=== PATIENT | female | born 1990 | race Caucasian/White ===

== ENCOUNTER 2023-06-11 08:20 | Emergency (ER) | payer OTHER, SELFPAY ==
[2023-06-11 08:24] VITALS: BP 126/84; PULSE 114; RESP 18; TEMP 36.9; O2SAT 97; BMI 21.0
--- NOTE | 2023-06-11 08:41 | ED_ITS ---
HPI - General Adult General Chief complaint: Upper Respiratory Infection Stated complaint: HEADACHE/FEVER Time Seen by Provider: 06/11/23 08:39 Source: patient Mode of arrival: walk-in Limitations: no limitations History of Present Illness HPI narrative: Patient is a 32-year-old female who is presenting to the Emergency Room today with flulike symptoms for the past 2-3 days. at bedside. Patient has right ear pain, sore throat, myalgia, arthralgia, mild sinus headache, patient does not feel well. 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 Patient did not go to work today. No sick contacts at patient is aware of. Mild nausea, no vomiting, no diarrhea, no other acute complaints. . All systems are negative except as noted/marked. All systems reviewed and otherwise negative. . Nurses note and vital signs reviewed and patient is not hypoxic. General: The patient appears Sick but not toxic. Patient is resting comfortably on cart. Patient is not toxic, lethargic, or listless Skin: Warm, dry, no pallor noted. There is no rash noted. No petechiae, purpura. Head: Normocephalic, atraumatic Eye: Normal conjunctiva, no drainage, EOMI. PERRL Ears, Nose, Mouth, and Throat: oral mucosa is moist. Nares patent. Mouth without vesicles. Bilateral tympanic membrane shows no erythema, perforation or bulging. Patient has minimal air-fluid levels noted behind the right tympanic membrane. Clear drainage noted to the posterior pharynx. Cardiovascular: Regular Rate and Rhythm, no murmur, gallop, rub Respiratory: Patient is in no distress, no accessory muscle use, lungs are clear to auscultation, no wheezing, rales or rhonchi Back: non-tender, no CVA tenderness bilaterally to percussion. No CT LS midline pain GI: soft, no tenderness to palpation, Musculoskeletal: Patient has full range of motion of all of the extremities, no motor, sensory, or focal neurological deficits Neurological: A&O x3, normal speech Psychiatric: Cooperative Related Data Home Medications Medication Instructions Recorded Confirmed No Known Home Medications 06/11/23 06/11/23 Previous Rx's Medication Instructions Recorded ondansetron 4 mg disintegrating 4 mg PO Q4H PRN nausea and 06/11/23 tablet vomiting 3 days #6 tabs Allergies Allergy/AdvReac Type Severity Reaction Status Date / Time No Known Drug Allergies Allergy Verified 06/11/23 08:24 [facility] Social History Smoking status: Never smoker Exam Constitutional Vital Signs, click to edit/add: Last Vital Signs Temp 98.4 F 06/11/23 08:24 Pulse 114 H 06/11/23 08:24 Resp 18 06/11/23 08:24 BP 126/84 06/11/23 08:24 Pulse Ox 97 06/11/23 08:24 Course Vital Signs Vital signs: Vital Signs Temperature 98.4 F 06/11/23 08:24 Pulse Rate 114 H 06/11/23 08:24 Respiratory Rate 18 06/11/23 08:24 Blood Pressure 126/84 06/11/23 08:24 Pulse Oximetry 97 06/11/23 08:24 Temperature 98.4 F 06/11/23 08:24 Pulse Rate 114 H 06/11/23 08:24 Respiratory Rate 18 06/11/23 08:24 Blood Pressure 126/84 06/11/23 08:24 Pulse Oximetry 97 06/11/23 08:24 Medical Decision Making MDM Narrative Medical decision making narrative: Patient had a strep, influenza, they were negative. Patient had a popsicle. Patient was educated on using [id number] symptomatically treatment. Patient will use DayQuil, NyQuil, Flonase. Patient states that she has not swallow pills, patient will use the look of medication that she is able to [id number]. Work note given. Patient was sent home with prescription for Zofran use as needed to help with nausea or vomiting starts. No questions at discharge. Lab Data Labs: Lab Results 06/11/23 Range/Units 08:40 Influenza Type A Ag Negative Influenza Type B Ag Negative SARS-CoV-2 Ag (CV2AG) Negative (NEGATIVE) Streptococcus Screen Negative Discharge Plan Discharge Chief Complaint: Upper Respiratory Infection Clinical Impression: Upper respiratory infection, Sinus congestion, Flu-like symptoms, Sore throat Patient Disposition: Home, Self-Care Time of Disposition Decision: 10:00 Condition: Fair Prescriptions / Home Meds: New ondansetron 4 mg tablet,disintegrating 4 mg PO Q4H PRN (Reason: nausea and vomiting) 3 Days Qty: 6 0RF No Action No Known Home Medications Instructions: Pharyngitis (ED), Upper Respiratory Infection (ED), Viral Syndrome (ED), Cold Symptoms (ED) Additional Instructions: Start using DayQuil, NyQuil, Flonase daily for next 5-7 days Add Mucinex DM if needed Take daily vitamin C, vitamin D3, and zinc Increase fluids Alternate Tylenol and Motrin every 4 hours as needed for body aches, muscle pain, joint pain or chest wall pain Follow-up with her PCP is no significant improvement in the next 3-4 days Stand Alone Forms: Work/School Release, Portal Instructions Referrals: Mina Morataya DO [Primary Care Provider] - 1 week
[2023-06-11 08:55] LABS: Internal Control Within Normal Limits; Strep A Antigen Screen Negative
[2023-06-11 09:01] LABS: Influenza Virus A Antigen Negative; Influenza Virus B Antigen Negative; Internal Control Within Normal Limits; SARS-CoV-2 Ag NEGATIVE (NEGATIVE)
== END 2023-06-11 10:22 | disposition home or self-care (01) ==
PROVIDERS: Emergency Provider Emergency Medicine; PCP Internal Medicine
DX: J02.9 Acute pharyngitis, unspecified (principal); J06.9 Acute upper respiratory infection, unspecified; R09.81 Nasal congestion; M79.10 Myalgia, unspecified site; M25.50 Pain in unspecified joint; H92.01 Otalgia, right ear; Z20.822 Contact with and (suspected) exposure to COVID-19
CPT/HCPCS: 87070; 87804; 87811; 87880; 99283

== ENCOUNTER 2024-07-18 18:56 | Emergency (ER) | payer OTHER, SELFPAY ==
[2024-07-18 19:01] VITALS: BP 97/62; PULSE 64; TEMP 37.1; O2SAT 98; BMI 20.4
--- OUTSIDE RECORDS SUMMARY | 2024-07-18 19:03 | XMS_ITS | CCD ---
Author Organization [facility] Care Team Providers Care Credit Authorizer Name Role Phone Manuela Ross Unavailable MD Loraine Patel Primary Care Provider MD Neftali Marquez Attending Provider KEKE, DR BARCENAS Admitting Unavailable KEKE, DR BARCENAS Attending Unavailable JULIO CÉSAR, DR RYAN Primary Care Unavailable KEKE, DR BARCENAS Consulting Unavailable AMANDA, DR LORAINE Rocha Admitting Unavailable AMANDA, DR LORAINE Rocha Attending Unavailable [facility], DR CASTRO Primary Care Unavailable AMANDA, DR LORAINE Rocha Consulting Unavailable MD Loraine Patel Primary Care Provider DO Mini Renner Attending Provider Loraine Patel Primary Care Unavailable Mini Renenr Attending Unavailable Mini Renner Admitting Unavailable Loraine Patel Primary Care Unavailable Mini Renner Attending Unavailable Mini Renner Admitting Unavailable Neftali Marquez Attending Unavailable Neftali Marquez Admitting Unavailable Loraine Patel Primary Care Unavailable Loraine Patel Primary Care Unavailable Neftali Marquez Attending Unavailable Neftali Marquez Admitting Unavailable MINI RENNER Attending Unavailable Loraine Patel MD Primary Care Provider Medications Current Medications Medication Drug Class(es) Dates Sig (Normalized) Sig (Original) amoxicillin 80 mg/ml oral suspension (1 source) Penicillin-class Antibacterial Start: 12-09-2021 take 10 mL by mouth every twelve hours Amoxicillin 400 MG/5ML 10 ml Orally every 12 hrs for 10 days Nov, Active Completed/Discontinued Medications Medication Drug Class(es) Dates Sig (Normalized) Sig (Original) cephalexin 500 mg oral capsule (4 sources) Cephalosporin Antibacterial Start: 05-06-2019 End: 07-10-2019 take 500 mg by mouth every six hours Cephalexin Discontinued 500 MG PO Q6H 40 10 May 06, 2019 1:00am July 10, 2019 6:06pm docusate sodium 100 mg oral capsule (4 sources) Start: 07-13-2019 End: 01-01-2022 take 1 capsule by mouth once daily at bedtime Docusate Sodium (Dok) 100 mg Capsule Discontinued 100 MG PO Daily at bedtime July 13, 2019 1:00am January 01, 2022 10:13am ferrous sulfate 325 mg oral tablet (4 sources) Start: 05-06-2019 End: 01-01-2022 take 1 tablet by mouth once daily Ferrous Sulfate (Iron) 325 mg (65 mg iron) Tablet Discontinued 325 MG PO Daily May 06, 2019 1:00am January 01, 2022 10:13am ibuprofen 20 mg/ml oral suspension (4 sources) Nonsteroidal Anti-inflammatory Drug Start: 07-13-2019 End: 01-01-2022 take 600 mg by mouth every six hours Ibuprofen Discontinued 600 MG PO Q6H 120 July 13, 2019 1:00am January 01, 2022 10:13am [id number] Fumarate-Fa () 28-800 mg-mcg Tablet (4 sources) Start: 05-06-2019 End: 01-01-2022 take 1 capsule by mouth once daily [id number] Fumarate-Fa () 28-800 mg-mcg Tablet Discontinued 1 CAP PO Daily May 06, 2019 1:00am January 01, 2022 10:13am (1 source) Not-Taking Problems Active Problems Problem Classification Problem Date Documented Date Episodic/Chronic Fever of unknown origin (1 source) Fever, unspecified; Translations: [FEVER UNSPECIFIED] Onset: 04-23-2022 Episodic Menstrual disorders (3 sources) Excessive and frequent menstruation with regular cycle; Translations: [Dysmenorrhea] Onset: 10-20-2022 10-20-2022 Chronic Other and delivery including normal (4 sources) Delivery normal; Translations: [Encounter for full-term uncomplicated delivery] 07-14-2019 Episodic Other upper respiratory infections (1 source) Chronic frontal sinusitis; Translations: [Chronic frontal sinusitis] Chronic Other upper respiratory infections (4 sources) Acute pharyngitis, unspecified; Translations: [Acute upper respiratory infection, unspecified] Onset: 04-21-2022 Episodic Unclassified (1 source) CONTACT W/AND (SUSP) EXPOS COVID-19; Translations: [CONTACT W/AND (SUSP) EXPOS COVID-19] Onset: 04-23-2022 Unclassified (1 source) Encounter for other preprocedural examination; Translations: [Encounter for other preprocedural examination] Onset: 12-02-2022 Unclassified (1 source) Encounter for preprocedural laboratory examination; Translations: [Encounter for preprocedural laboratory examination] Onset: 12-30-2021 Past or Other Problems Problem Classification Problem Date Documented Da te Episodic/Chronic Gastrointestinal hemorrhage (4 sources) Gastrointestinal hemorrhage, unspecified; Translations: [GASTROINTESTINAL HEMORRHAGE UNS] Onset: 2 Episodic Inflammatory diseases of female pelvic organs (1 source) Subacute vaginitis; Translations: [Subacute and chronic vaginitis] Onset: 3 10-20-2022 Episodic Other lower respiratory disease (1 source) Hemoptysis; Translations: [Hemoptysis] Onset: 2 Episodic Otitis media and related conditions (1 source) Otitis media, unspecified, left ear Onset: 2 Resolved: 2 Episodic Results Test Name Value Interpretation Reference Range Facil kylee Castellon 12-16-2022 L --- Specimen: [id number] Received: 12/16/22-1254 Status: SRIKANTH Louis Num: [id number] Spec Type: Surgical Subm Dr: Mini Renner, Tissues: A Uterus w/ or w/o tubes ovaries except neoplastic or prolap (CERVIX/LUIS ANGEL FT) Procedures: , Gross/Micro L5 Age/ Patient Sex Location Account Attending Physician Sarah Connelly 32/F ANATOLY [id number] Mini Renner, DO SPEC NUM: [id number] RECD: 12/16/22-1254 STATUS: SRIKANTH MISSAEL NUM: [id number] KACY: 12/16/22- [facility] DR: Mini Renner DO ENTERED: 12/16/22-1256 [facility] DR: [facility] SPEC TYPE: Surgical DEPT: S ORDERED: HE/, Gross/Micro L5 ORDERED: , Gross/Micro L5 Pathological Diagnosis Cervix, uterus, bilateral fallopian tubes, hysterectomy with bilateral salpingectomy: - Cervix with apparently severe chronic cervicitis without dysplasia - Corpus with mildly disordered proliferative endometrium of the mid phase type without hyperplasia or atypia - Incidental at least mild superficial adenomyosis - Incidental multiple and large congested vessels throughout the thickened guzman of the cervix and corpus portion, per manifest of severe pelvic congestion syndrome - Fimbriated right fallopian tube without significant histopathological change except moderate nonspecific congestion - Fimbriated left fallopian tube also without significant histopathological change except nonspecific congestion, and 1 mesothelial inclusion cyst without atypia Clinical Information Menorrhagia, dysmenorrhea, enlarged uterus, adenomyosis, pelvic congestion syndrome, 198 g Gross Description Received in formalin labeled with the patient's name, date of and cervix, uterus, bilateral fallopian tubes, 198 g is a 188 g, 9.7 x 6.8 x 5.5 cm uterus with attached bilateral fallopian tubes. No ovaries are received. The uterine serosa is langford-burns. The exocervix is purple-pink with a central 1.3 cm patent os from which langford-red mucus protrudes. The endocervix is langford-red, glistening. The langford-red endometrium averages 0.3 cm in thickness. The pink-langford, trabecular myometrium measures up to 2.2 cm in thickness. No myometrial lesions are identified. The right fimbriated fallopian tube measures 6.9 x 1.0 x Specimen: [id number] Received: 12/16/22 Status: SRIKANTH Louis Num: [id number] Spec Type: Surgical Subm Dr: Mini Renner, Tissues: A Uterus w/ or w/o tubes ovaries except neoplastic or prolap (CERVIX/LUIS ANGEL FT) Procedures: HE/, Gross/Micro L5 Patient: Sarah Connelly Suzanne [id number] (Continued) Specimen: [id number] Received: 12/16/22 (Continued) Gross Description (Continued) Signed (signature on file) Francisca Rae MD 12/17/22 193 Specimen: [id number] Received: 12/16/22 Status: SIRKANTH Louis Num: [id number] Spec Type: Surgical Subm Dr: Mini Renner DO Tissues: A Uterus w/ or w/o tubes ovaries except neoplastic or prolap (CERVIX/LUIS ANGEL FT) Procedures: , Gross/Micro L5 Patient: MaricelSarah R [id number] (Continued) Specimen: [id number] Received: 12/16/22-1255 (Continued) Gross Description (Continued) 0.5 cm and has a pinpoint lumen on cut section. The left fimbriated fallopian tube measures 6.5 x 1.3 x 0.7 cm, and has a pinpoint lumen on cut section. The left fallopian tube has an attached 0.5 cm paratubal cyst. [employer] sections are submitted in 8 cassettes as follows: A1 - Anterior cervix A2 - Posterior cervix A3-A4 - Anterior endomyometrium A5-A6 - Posterior endomyometrium A7 - Right fallopian tube A8 - Left fallopian tube Microscopic Description Eight H E slides reviewed. The microscopic examination confirms the diagnosis. CPT Codes 82118 Specimen: [id number] Recei (more content not included)... Normal [facility] Basophils Auto (Bld) [#/Vol] Ordered By: Mini Renner on 12-02-2022 Basophils (Bld) [#/Vol] 0.1 10*3/uL 0.0-0.2 [facility] Basophils/100 WBC Auto (Bld) Ordered By: Mini Renner on 12-02-2022 Basophils/100 WBC (Bld) 1.1 % . [facility] Complete Blood Count Auto Di ffon 12-02-2022 Basophils (Bld) [#/Vol] 0.1 10*3/uL Normal 0.0-0.2 [facility] Comment on above: Result Comment: PERF ORMED BY: [place] [address] PATHOLOGIST CLOTHES DESIGNER EMIL BUCHANAN M.D. Performed By: #### C BC #### [address] Basophils/100 WBC (Bld) 1.1 % Normal . [facility] Comment on above: Performed By: #### C BC #### [address] Eosinophils (Bld) [#/Vol] 0.0 10*3/uL Normal 0.0-0.45 [facility] Comment on above: Performed By: #### C BC #### [address] Eosinophils/100 WBC (Bld) 0.4 % Normal . [facility] Comment on above: Performed By: #### C BC #### [address] Erythrocyte distribution width (RBC) [Ratio] 13.7 % Normal 11.9-15.3 [facility] Comment on above: Performed By: #### C BC #### [address] Hematocrit (Bld) [Volume fraction] 36.7 % Normal 34.0-46.4 [facility] Comment on above: Performed By: #### C BC #### [address] Hemoglobin (Bld) [Mass/Vol] 12.2 g/dL Normal 11.8-15.4 [facility] Comment on above: Performed By: #### C BC #### [address] Lymphocytes (Bld) [#/Vol] 2.4 10*3/uL Normal 1.00-4.8 [facility] Comment on above: Performed By: #### C BC #### [address] Lymphocytes/100 WBC (Bld) 28.2 % Normal . [facility] Comment on above: Performed By: #### C BC #### [facility] [address] MCH (RBC) [Entitic mass] 30.3 pg Normal 24.7-34.3 [facility] Comment on above: Performed By: #### C BC #### [facility] [address] MCV (RBC) [Entitic vol] 91.0 fL Normal 80-100 [facility] Comment on above: Performed By: #### C BC #### [address] Mean Corpuscular HGB Conc 33.3 g/dL Normal 32.0-35.0 [facility] Comment on above: Performed By: #### C BC #### [address] Monocytes (Bld) [#/Vol] 0.3 10*3/uL Normal 0.0-0.8 [facility] Comment on above: Performed By: #### C BC #### [address] Monocytes/100 WBC (Bld) 4.0 % Normal . [facility] Comment on above: Performed By: #### C BC #### [address] Neutrophils (Bld) [#/Vol] 5.6 10*3/uL Normal 1.8-7.7 [facility] Comment on above: Performed By: #### C BC #### [address] Neutrophils/100 WBC (Bld) 66.3 % Normal . [facility] Comment on above: Performed By: #### C BC #### [address] NRBC% 0.1 /100{WBC} Normal 0-0.5 [facility] Comment on above: Performed By: #### C BC #### [facility] [address] Platelet mean volume (Bld) [Entitic vol] 9.4 fL Normal 6.3-10.7 [facility] Comment on above: Performed By: #### C BC #### [facility] [address] Platelets (Bld) [#/Vol] 232 10*3/uL Normal 150-450 [facility] Comment on above: Performed By: #### C BC #### [facility] [address] RBC (Bld) [#/Vol] 4.04 10*6/uL Normal 3.60-5.00 [facility] Comment on above: Performed By: #### C BC #### [facility] [address] WBC (Bld) [#/Vol] 8.4 10*3/uL Normal 3.8-11.6 [facility] Comment on above: Performed By: #### C BC #### [facility] [address] Eosinophils Auto (Bld) [#/Vo l]Ordered By: Mini Renner on 12-02-2022 Eosinophils (Bld) [#/Vol] 0.0 10*3/uL 0.0-0.45 [facility] Eosinophils/100 WBC Auto (Bl d)Ordered By: Mini Renner on 12-02-2022 Eosinophils/100 WBC (Bld) 0.4 % . [facility] Erythrocyte distribution wid th Auto (RBC) [Ratio]Ordered By: Mini Renner on 12-02-2022 Erythrocyte distribution width (RBC) [Ratio] 13.7 % 11.9-15.3 [facility] Hematocrit Auto (Bld) [Volum e fraction]Ordered By: Mini Renner on 12-02-2022 Hematocrit (Bld) [Volume fraction] 36.7 % 34.0-46.4 [facility] Hemoglobin [Mass/volume] in BloodOrdered By: Mini Renner on 12-02-2022 Hemoglobin (Bld) [Mass/Vol] 12.2 g/dL 11.8-15.4 [facility] Leukocytes [#/volume] correc catalina for nucleated erythrocytes in Blood by Automated counOrdered By: Mini Renner on 12-02-2022 WBC corrected for nucl RBC Auto (Bld) [#/Vol] 8.4 10*3/uL 3.8-11.6 [facility] Lymphocytes Auto (Bld) [#/Vo l]Ordered By: Mini Renner on 12-02-2022 Lymphocytes (Bld) [#/Vol] 2.4 10*3/uL 1.00-4.8 [facility] Lymphocytes/100 WBC Auto (Bl d)Ordered By: Mini Renner on 12-02-2022 Lymphocytes/100 WBC (Bld) 28.2 % . [facility] MCH Auto (RBC) [Entitic mass ]Ordered By: Mini Renner on 12-02-2022 MCH (RBC) [Entitic mass] 30.3 pg 24.7-34.3 [facility] MCHC Auto (RBC) [Mass/Vol]Or dered By: Mini Renner on 12-02-2022 MCHC (RBC) [Mass/Vol] 33.3 g/dL 32.0-35.0 [facility] MCV Auto (RBC) [Entitic vol] Ordered By: Mini Renner on 12-02-2022 MCV (RBC) [Entitic vol] 91.0 fL 80-100 [facility] Monocytes Auto (Bld) [#/Vol] Ordered By: Mini Renner on 12-02-2022 Monocytes (Bld) [#/Vol] 0.3 10*3/uL 0.0-0.8 [facility] Monocytes/100 WBC Auto (Bld) Ordered By: Mini Renner on 12-02-2022 Monocytes/100 WBC (Bld) 4.0 % . [facility] Neutrophils Auto (Bld) [#/Vo l]Ordered By: Mini Renner on 12-02-2022 Neutrophils (Bld) [#/Vol] 5.6 10*3/uL 1.8-7.7 [facility] Neutrophils/100 WBC Auto (Bl d)Ordered By: Mini Renner on 12-02-2022 Neutrophils/100 WBC (Bld) 66.3 % . [facility] Nucleated erythrocytes [Pres ence] in Blood by Automated countOrdered By: Mini Renner on 12-02-2022 Nucleated RBC Auto Ql (Bld) 0.1 /100{WBC} 0-0.5 [facility] Platelet mean volume Auto (B ld) [Entitic vol]Ordered By: Mini Renner on 12-02-2022 Platelet mean volume (Bld) [Entitic vol] 9.4 fL 6.3-10.7 [facility] Platelets Auto (Bld) [#/Vol] Ordered By: Mini Renner on 12-02-2022 Platelets (Bld) [#/Vol] 232 10*3/uL 150-450 [facility] RBC Auto (Bld) [#/Vol]Ordere d By: Mini Renner on 12-02-2022 RBC (Bld) [#/Vol] 4.04 10*6/uL 3.60-5.00 [facility] WBC Auto (Bld) [#/Vol]Ordere d By: Mini Renner on 12-02-2022 WBC (Bld) [#/Vol] 8.4 10*3/uL 3.8-11.6 [facility] Covid-19 PCR (CVDTB)on 03-25 SARS-CoV-2 (COVID-19) RNA IVETH+probe Ql (Unsp spec) Not detected Normal NOT DETECTED [facility] Comment on above: Result Comment: When diagnostic testing is negative, the possibility of a false negative should be considered in the context of a patient's recent exposures and the presence of clinical signs and symptoms consistent with SARS-CoV-2. This test is not yet approved or cleared by the [place] FDA. When there are no FDA-approved or cleared tests available, and other criteria are met, FDA can make tests available under an emergency access mechanism called an Emergency Use Authorization (EUA). The EUA for this test is supported by the Technology Training Associate of Health and Human Service's declaration that circumstances exist to justify the emergency use of in vitro diagnostics for the detection and/or diagnosis of the virus that causes COVID-19. This EUA will remain in effect for the duration of the COVID-19 declaration justifying emergency of IVDs, unless it is terminated or revoked by the FDA (after which the test may no longer be used). Performed By: #### C VDTBH #### [facility] [address] [place] [address] Dr. Marjorie Rae GROUP A STREP CULTUREon 03-25 S. pyogenes Ag Ql (Unsp spec) Culture Observations: NEGATIVE FOR GROUP A STREPTOCOCCUS. Normal [facility] Comment on above: Performed By: #### G RASTCX #### [facility] [address] [place] [address] Dr. Marjorie Rae INFLUENZA A AND B AGon 04-21 [facility] SEE BELOW Normal [facility] Comment on above: Result Comment: Nega tive for Flu A protein angiten. Infection due to Flu A cannot be ruled out. Flu A angiten in the sample may be below the detection limit of the test. Performed By: #### I NFLUAB #### [facility] [address] [place] [address] Dr[facility] Normal [facility] Comment on above: Result Comment: Nega tive for Flu B protein antigen. Infection due to Flu B cannot be ruled out. Flu B antigen in the sample may be below the detection limit of the test. Performed By: #### I NFLUAB #### [facility] [address] [place] [address] Dr. Marjorie Rae INFLUENZA A AG Negative Normal NEGATIVE SEE COMMENT [facility] Comment on above: Performed By: #### I NFLUAB #### [facility] [address] [place] [address] Dr. Marjorie Rae INFLUENZA B AG Negative Normal NEGATIVE SEE COMMENT [facility] Comment on above: Performed By: #### I NFLUAB #### [facility] [address] [place] [address] Dr. Marjorie Rae INTERNAL CONTROLS Within Normal Limits Normal Wi thin Normal Limits [facility] Comment on above: Performed By: #### I NFLUAB #### [facility] [address] [address] [address] Marjorie Rae STREPT SCREENon 04-21-2022 STREP SCREEN A Negative Normal NEGATIVE [facility] Comment on above: Performed By: #### S SCRN #### [facility] [address] [address] [address] Marjorie Rae HCG ( test) IA.rapi d Ql (U)Ordered By: Neftali Marquez on 01-01-2022 HCG ( test) Ql (U) Negative [facility] HCG,Urineon 01-01-2022 Beta HCG ( test) Ql (U) Negative Normal [facility] Comment on above: Result Comment: PERF ORMED BY: [place] [address] PATHOLOGIST CLOTHES DESIGNER EMIL BUCHANAN M.D. Performed By: #### U HCG #### [address] COVID-19 [facility]MCon 12-30-2021 SARS-CoV-2 (COVID-19) RNA IVETH+probe Ql (Unsp spec) Negative Normal Negative [facility] Comment on above: Order Comment: Healt hcare Worker?: N Result Comment: Testing for SARS-CoV-2 by RT-PCR This test was developed and its performance characteristics determined by [employer] and validated at the [facility]. This test has not been FDA cleared or approved. This test has been authorized by FDA under an Emergency Use Authorization (EUA). This test has been validated in accordance with the FDA's Guidance Document (Policy for Diagnostics Testing in Laboratories Certified to Perform High Complexity Testing under CLIA prior to Emergency Use Authorization for Coronavirus Disease-2019 during the Public Health Emergency) issued on August 24, 2019. This test is only authorized for the duration of time the declaration that circumstances exist justifying the authorization of the emergency use of in vitro diagnostic tests for detection of SARS-CoV-2 virus and/or diagnosis of COVID-19 infection under section 564(b)(1) of the Act, 21 U.S.C. 360bbb-3(b)(1), unless the authorization is terminated or revoked sooner. PERFORMED BY: [facility] [address] [place] [address] PATHOLOGIST CLOTHES DESIGNER EMIL BUCHANAN M.D. Performed By: #### C OVID 19 [facility] #### [facility] [address] [id number] [facility] COVID-19 Positive/NegativeOr dered By: Neftali Marquez on 12-30-2021 SARS-CoV-2 (COVID-19) N gene IVETH+probe Ql (Resp) Negative Negative [facility] Comment on above: Testing for SARS-CoV -2 by RT-PCR This test was developed and its performance characteristics determined by [employer] and validated at the [facility]. This test has not been FDA cleared or approved. This test has been authorized by FDA under an Emergency Use Authorization (EUA). This test has been validated in accordance with the FDA's Guidance Document (Policy for Diagnostics Testing in Laboratories Certified to Perform High Complexity Testing under CLIA prior to Emergency Use Authorization for Coronavirus Disease-2019 during the Public Health Emergency) issued on August 24, 2019. This test is only authorized for the duration of time the declaration that circumstances exist justifying the authorization of the emergency use of in vitro diagnostic tests for detection of SARS-CoV-2 virus and/or diagnosis of COVID-19 infection under section 564(b)(1) of the Act, 21 U.S.C. 360bbb-3(b)(1), unless the authorization is terminated or revoked sooner. H PYLORI ANTIBODY IGGon 10-22 H. PYLORI IGG ABS 0.19 Index Value Normal 0.00-0.79 [facility] Comment on above: Result Comment: Nega tive <0.80 Equivocal 0.80 - 0.89 Positive >0.89 Performed By: #### H PYLLC #### [facility] [address] [address] [address] Marjorie Rae CBC AUTO DIFFon 11-06-2021 BASO # 0.1 103/ul Normal 0.0-0.1 [facility] Comment on above: Performed By: #### C BC #### [facility] [address] [address] [address] Marjorie Rae Basophils/100 WBC (Bld) 0.5 % Normal 0.2-2.0 [facility] Comment on above: Performed By: #### C BC #### [facility] [address] [address] [address] Marjorie Rae EO # 0.1 103/ul Normal 0.0-0.7 [facility] Comment on above: Performed By: #### C BC #### [facility] [address] [address] [address] Marjorie Rae Eosinophils/100 WBC (Bld) 0.5 % Critically low 0.9-7.0 [facility] Comment on above: Performed By: #### C BC #### [facility] [address] [place] [address] Dr. Marjorie Rae Erythrocyte distribution width (RBC) [Ratio] 12.8 % Normal 11.0-15.0 [facility] Comment on above: Performed By: #### C BC #### [facility] [address] [place] [address] Dr. Marjorie Rae Hematocrit (Bld) [Volume fraction] 34.1 % Critically low 36.0-48.0 [facility] Comment on above: Performed By: #### C BC #### [facility] [address] [place] [address] Dr. Marjorie Rae Hemoglobin (Bld) [Mass/Vol] 11.2 g/dL Critically low 12.0-16.0 [facility] Comment on above: Performed By: #### C BC #### [facility] [address] [place] [address] Dr. Marjorie Rae IG # 0.02 10e3/ul Normal 0.00-0.03 [facility] Comment on above: Performed By: #### C BC #### [facility] [address] [place] [address] Dr. Marjorie Rae IG % 0.2 % Normal 0.0-0.5 [facility] Comment on above: Performed By: #### C BC #### [facility] [address] [place] [address] Dr. Marjorie Rae LYMPH # 2.4 103/ul Normal 1.2-3.8 [facility] Comment on above: Performed By: #### C BC #### [facility] [address] [place] [address] Dr. Marjorie Rae Lymphocytes/100 WBC (Bld) 26.8 % Normal 20.5-60.0 [facility] Comment on above: Performed By: #### C BC #### [facility] [address] [place] [address] Dr. Marjorie Rae MANUAL DIFF REQ NO Normal [facility] Comment on above: Performed By: #### C BC #### [facility] [address] [place] [address] Dr. Marjorie Rae MCH (RBC) [Entitic mass] 31.4 pg Normal 26.7-34.0 [facility] Comment on above: Performed By: #### C BC #### [facility] [address] [place] [address] Dr. Marjorie Rae MCHC (RBC) [Mass/Vol] 32.8 g/dL Normal 29.9-35.2 [facility] Comment on above: Performed By: #### C BC #### [facility] [address] [place] [address] Dr. Marjorie Rae MCV (RBC) [Entitic vol] 95.5 fL Normal 81.0-99.0 [facility] Comment on above: Performed By: #### C BC #### [facility] [address] [place] [address] Dr. Marjorie Rae MONO # 0.5 103/ul Normal 0.3-0.8 [facility] Comment on above: Performed By: #### C BC #### [facility] [address] [place] [address] Dr. Marjorie Rae Monocytes/100 WBC (Bld) 5.8 % Normal 1.7-12.0 [facility] Comment on above: Performed By: #### C BC #### [facility] [address] [address] [address] Marjorie Rae NEUT # 6.0 103/ul Normal 1.4-6.5 [facility] Comment on above: Performed By: #### C BC #### [facility] [address] [address] [address] Marjorie Rae Neutrophils/100 WBC (Bld) 66.2 % Normal 43.0-75.0 [facility] Comment on above: Performed By: #### C BC #### [facility] [address] [address] [address] Marjorie Rae Platelet mean volume (Bld) [Entitic vol] 10.6 fL Normal 9.5-13.5 [facility] Comment on above: Performed By: #### C BC #### [facility] [address] [place] [address] Dr. Marjorie Rae PLT 246 103/ul Normal 150-450 [facility] Comment on above: Performed By: #### C BC #### [facility] [address] [place] [address] Dr. Marjorie Rae RBC 3.57 106/ul Critically low 4.20-5.40 [facility] Comment on above: Performed By: #### C BC #### [facility] [address] [place] [address] Dr. Marjorie Rae WBC 9.1 103/ul Normal 4.0-11.0 [facility] Comment on above: Performed By: #### C BC #### [facility] [address] [place] [address] Dr. Marjorie Rae PROF 14(COMP METB)on 022 Albumin [Mass/Vol] 3.7 g/dL Normal 3.4-5.0 [facility] Comment on above: Performed By: #### C MP #### [facility] [address] [place] [address] Dr. Marjorie Rae Albumin/Globulin [Mass ratio] 1.2 {ratio} Normal [facility] Comment on above: Performed By: #### C MP #### [facility] [address] [address] [address] Marjorie Rae ALP [Catalytic activity/Vol] 37 U/L Critically low 46-116 [facility] Comment on above: Performed By: #### C MP #### [facility] [address] [address] [address] Marjorie Rae ALT [Catalytic activity/Vol] 14 U/L Normal 14-59 [facility] Comment on above: Performed By: #### C MP #### [facility] [address] [place] [address] Dr. Marjorie Rae Anion gap [Moles/Vol] 9.2 mmol/L Normal [facility] Comment on above: Performed By: #### C MP #### [facility] [address] [place] [address] Dr. Marjorie Rae AST [Catalytic activity/Vol] 7 U/L Critically low 15-37 [facility] Comment on above: Performed By: #### C MP #### [facility] [address] [place] [address] Dr. Marjorie Rae Bilirubin [Mass/Vol] 0.8 mg/dL Normal 0.2-1.0 [facility] Comment on above: Performed By: #### C MP #### [facility] [address] [place] [address] Dr. Marjorie Rae Calcium [Mass/Vol] 8.7 mg/dL Normal 8.5-10.1 [facility] Comment on above: Performed By: #### C MP #### [facility] [address] [place] [address] Dr. Marjorie Rae Chloride [Moles/Vol] 107 mmol/L Normal 98-107 [facility] Comment on above: Performed By: #### C MP #### [facility] [address] [place] [address] Dr. Marjorie Rae CO2 [Moles/Vol] 29.7 mmol/L Normal 21.0-32.[address] [facility] Comment on above: Performed By: #### C MP #### [facility] [address] [place] [address] Dr. Marjorie Rae Creatinine [Mass/Vol] 0.73 mg/dL Normal 0.55-1.02 [facility] Comment on above: Performed By: #### C MP #### [facility] [address] [address] [address] Marjorie Rae EGFR-AF MONGOLIAN >60 Normal >=[address] [facility] Comment on above: Performed By: #### C MP #### [facility] [address] [address] [address] Marjorie Rae EGFR-NON AF MONGOLIAN >60 Normal >=60 [facility] Comment on above: Performed By: #### C MP #### [facility] [address] [address] [address] Marjorie Rae Globulin (S) [Mass/Vol] 3.1 g/dL Normal [facility] Comment on above: Performed By: #### C MP #### [facility] [address] [place] [address] Dr. Marjorie Rae Glucose [Mass/Vol] 95 mg/dL Normal 74-106 [facility] Comment on above: Performed By: #### C MP #### [facility] [address] [address] [address] Marjorie Rae Potassium [Moles/Vol] 3.9 mmol/L Normal 3.5-5.1 [facility] Comment on above: Performed By: #### C MP #### [facility] [address] [address] [address] Marjorie Rae Protein [Mass/Vol] 6.8 g/dL Normal 6.4-8.2 [facility] Comment on above: Performed By: #### C MP #### [facility] [address] [address] [address] Marjorie Rae Sodium [Moles/Vol] 142 mmol/L Normal 136-145 [facility] Comment on above: Performed By: #### C MP #### [facility] [address] [address] [address] Marjorie Rae Urea nitrogen [Mass/Vol] 16.0 mg/dL Normal 7.0-18.0 [facility] Comment on above: Performed By: #### C MP #### [facility] [address] [address] [address] Marjorie Rae Urea nitrogen/Creatinin e [Mass ratio] 21.9 mg/mg Normal [facility] Comment on above: Performed By: #### C MP #### [facility] [id number] Marjorie Rae Vital Signs Date Time Vital Sign Value Performing Clinician Facility 01-01-2022 11:10-0400 Diastolic blood pressure 64 mm[Hg] MD Loraine Patel Work Phone: [facility] 01-01-2022 11:10-0400 Heart rate 68 /min MD Loraine Patel Work Phone: [facility] 01-01-2022 11:10-0400 Respiratory rate 16 /min MD Loraine Patel Work Phone: [facility] 01-01-2022 11:10-0400 SaO2% (BldA) [Mass fraction] 99 % MD Loraine Patel Work Phone: [facility] 01-01-2022 11:10-0400 Systolic blood pressure 100 mm[Hg] MD Loraine Patel Work Phone: [facility] 01-01-2022 10:20-0400 Body height 170.18 cm MD Loraine Patel Work Phone: [facility] 01-01-2022 10:20-0400 Body temperature 98.2 [degF] MD Loraine Patel Work Phone: [facility] 01-01-2022 10:20-0400 Body weight 65.77 kg MD Loraine Patel Work Phone: [facility] 12-09-2021 10:35-0400 Body height 170.18 cm Manuela Ross Other [employer] Other 12-09-2021 10:35-0400 Body temperature 101.2 [degF] Manuela Ross Other [employer] Other 12-09-2021 10:35-0400 Respiratory rate 18 /min Manuela Ross Other [employer] Other 12-09-2021 10:35-0400 SaO2% (BldA) [Mass fraction] 96 % Manuela Ross Other [employer] Other Encounters Encounter Date Encounter Type Care Provider Facility Start: 07-11-2024 End: 07-11-2024 Telephone encounter Mini Renner DO Work Phone: [facility] Start: 08-31-2023 End: 08-31-2023 ambulatory MINI RENNER Not Available Start: 12-16-2022 End: 12-16-2022 ambulatory Loraine Patel Facility:[facility] Start: 12-16-2022 End: 12-16-2022 ambulatory MD Loraine Patel Work Phone: [facility] Work Phone: Start: 12-16-2022 End: 12-16-2022 Departed Referred MD Loraine Patel Work Phone: [facility] [place] Work Phone: Start: 12-02-2022 End: 12-02-2022 ambulatory Loraine Patel Facility:[facility] Start: 12-02-2022 End: 12-02-2022 ambulatory MD Loraine Patel Work Phone: [facility] Work Phone: Start: 12-02-2022 End: 12-02-2022 Patient encounter procedure MD Loraine Patel Work Phone: [facility] [place] Work Phone: Start: 04-21-2022 End: 04-21-[address] SWAPNA DAVIES Facility:[facility] Start: 01-01-2022 End: 01-01-2022 ambulatory Loraine Patel Facility:[facility] Start: 01-01-2022 End: 01-01-2022 Admission to same day surgery center MD Loraine Patel Work Phone: [facility] Start: 12-30-2021 End: 12-30-2021 ambulatory Neftali Marquez Facility:[facility] Start: 12-30-2021 End: 12-30-2021 Patient encounter procedure MD Loraine Patel Work Phone: [facility] Start: 12-09-2021 End: 12-09-2021 ambulatory Manuela Ross Other [employer] Other Start: 12-09-2021 Office outpatient visit 15 minutes Manuela Ross [facility] Start: 11-06-2021 End: 11-07-[address] LORAINE PATEL Facility:[facility] Procedures Date Procedure Procedure Detail Performing Clinician Start: 01-01-2022 Esophagogastroduodenoscopy MD Loraine Patel Work Phone: Plan of Treatment Date Care Activity Detail Author Start: 01-01-2022 [facility] Work Phone: Payers Date Payer Category Payer [facility] ( and others) [id number] 2022 () [id number] 2021 Self-pay [id number] 1990 Unknown [id number] 1990 Unknown [id number] 1990 Unknown [id number] 1959 [employer] ( and others) [id number] Unknown [id number] Unknown [id number] Unknown [id number] [id number] Unknown [id number] Social History Date Type Detail Facility Unknown if ever smoked [facility] [employer] Other Start: 08-31-2023 Sex Assigned At N [facility] [employer] Other Start: 01-01-2022 End: 12-16-2022 Tobacco smoking status [facility] Never smoked tobacco (finding) [facility] Start: 1990 Sex Assigned At Female F [facility] Start: 08-31-2023 Alcoholic beverage intake Lifetime non-drinker (finding) [facility] Start: 08-31-2023 History of Social function [facility] Start: 12-16-2022 Education 21 [facility] Start: 12-16-2022 Alcohol Comment Caffeine intak e: 1-2 cups per day pop [facility] Start: 1990 Sex assigned at Not on file [facility] Goals Date Patient Goal Desired Activity /State Telephone encounter Note 07-11-2024 Telephone Encounter - Génesis Zapata - 07/11/2024 11:00 AM EST Note Date & Type Note Facility 07-11-2024 Telephone encount er Note Letter sent out on 07/11/24 to reschedule apt due to provider out of office. [facility] Note 07-11-2024 Telephone Encounter - Génesis Zapata - 07/11/2024 11:00 AM EST Note Date & Type Note Facility 07-11-2024 Miscellaneous Notes Formattin g of this note might be different from the original. Letter sent out on 07/11/24 to reschedule apt due to provider out of office. documented in this encounter [facility] Procedure note 01-01-2022 Note Date & Type Note Facility 01-01-2022 Procedure note [facility] Evaluation note 12-09-2021 Note Date & Type Note Facility 12-09-2021 Evaluation note Encounter Date Diagnosis Assessment Notes Nov, Left acute otitis media (ICD-10 - H66.92) Ear infections are often a secondary infection caused from an URI, the flu or allergies. Take medication as directed. Complete all doses, even if you feel better. Tylenol or ibuprofen can help with pain. Warm pack to area for comfort helps as well. Follow up with primary care provider if no improvement of symptoms. Explained to patient concerned that she may have viral infection due to fever and headache- patient states she would like to refuse further testing at this time. Explained that may be contagious. [employer] Other Evaluation note Note Date & Type Note Facility Evaluation note No assessment information availa [facility] Work Phone: History and physical note Note Date & Type Note Facility History and physical note Note Date/Time January 01, 2022 10:34am [facility] [address] [place] [address] Gastroenterology H&P Signed Patient: Sarah Connelly MR#: [id number] : 1990 Acct:[id number] Age/Sex: 31 / F Adm Date: 2 Loc: Room: Type: [facility] Attending Dr: Neftali Marquez MD Copies to: MD Loraine Rivera MD~ Date of Service: 01/01/2022 HISTORY & PHYSICAL: Patient's history with special attention to the cardiovascular, pulmonary systems and the current problem was reviewed with the patient immediately prior to the procedure. Present medications and doses reviewed in the EMR. Allergies and pertinent laboratory tests were also reviewedat this time in the EMR. The physical examination, as below, was then performed. Indication, assessment and HPI: 31-year-old female presents for EGD for a history of spitting up blood. Happened 1 time while she was in the shower forseveral minutes. She was not throwing up or retching with the episode. Denies coughing with the episode. No frequent NSAID use. No family history of bleeding disorders. Family history of GI malignancy? No PHYSICAL EXAMINATION Mouth and Pharynx : Moist mucus membranes, normal dentition Cardiac: Regular rate, regular rhythm Pulmonary: Clear to auscultation bilaterally, no wheezing Neurological: Alert and oriented x3, no focal deficits noted Abdomen: Abdomen soft, non-tender REVIEW OF SYSTEMS Constitutional: Denies malaise, fevers Cardiovascular: Denies chest pain, palpitations Respiratory: Denies shortness of breath, wheezing Gastrointestinal: Per HPI Genitourinary: Denies dysuria, polyuria Musculoskeletal: Denies joint swelling, joint stiffness Neurological: Denies numbness, tingling Integumentary: Denies rashes, skin lesions Endocrine: Denies fatigue, weight loss Written informed consent obtained from the patient. Risks (including but not limited to perforation, infection, bloating, bleeding, need for emergent surgeryand loss of life), benefits and alternatives explained and questions answered. The patient verbalized understanding. Based on history patient is an appropriate candidate for the procedure. Neftali Marquez MD Documented By: Neftali Marquez MD 01/01/22 1033 Signed By: <Electronically signed by Neftali Marquez MD> 01/01/22 1034 [facility] Work Phone: History general Narrative - Reported Note Date & Type Note Facility History general Narrative - Reported Type Surgical History tonsillectomy [employer] Other Chief Complaint and Reason for Visit Chief Complaint Upper GI Bleed Upper GI Bleed Chief Complaint labs Advance Directives Advance Directive Response Recorded Date/ Time Advance Directives No April 24, 2019 11:29am Summary Purpose Family History No Family History Records Found Additional Source Comments REASON FOR VISIT (unrecogniz ed section and content) HONDA BURNS, LEFT EAR PAIN, H /A X 2 DAYS Care Teams (unrecognized sec tion and content) Team Status: Inactive Member Role Status Dates Loraine Patel MD Primary Care Provider Active Neftali Marquez MD Attending Provider Active Team Status: Active Member Role Status Dates Loraine Patel MD Primary Care Provider Active Team Status: Inactive Member Role Status Dates Loraine Patel MD Primary Care Provider Active Mini Renner DO Attending Provider Active Credit Authorizer Relationship Specialty Start Date End Date Loraine Patel MD [address] [place] [address] PCP - General Family Medicine 10/27/22 INFORMATION SOURCE (unrecogn ized section and content) DATE CREATED AUTHOR [facility]23/2022 [facility] DATE CREATED AUTHOR AUTHOR'S ORGANIZ ATION 12/25/2022 [facility] DATE CREATED AUTHOR AUTHOR'S ORGANIZ ATION 09/01/2023 [facility] EPIC Goals (unrecognized section and content) Goals may be documented in a n alternate section FOR RECORDS PERTAINING TO PATIENTS WHO ARE OR HAVE BEEN ENROLLED IN A CHEMICAL DEPENDENCY/SUBSTANCEABUSE PROGRAM, SOME INFORMATION MAY BE OMITTED. This clinical summary was aggregated from multiple sources. Caution should be exercised in using it in the provision of clinical care. This summary normalizes information from multiple sources, and as a consequence, information in this document may materially change the coding, format and clinical context of patient data. In addition, data may be omitted in some cases. CLINICAL DECISIONS SHOULD BE BASED ON THE PRIMARY CLINICAL RECORDS. [employer] provides no warranty or guarantee of the accuracy or completeness of information in this document.
[2024-07-18 19:20] LABS: Influenza Virus A Antigen Negative; Influenza Virus B Antigen Negative; Internal Control Within Normal Limits; Respiratory Syncytial Virus Not Detected (NOT DETECTE); SARS-CoV-2 Ag NEGATIVE (NEGATIVE)
--- NOTE | 2024-07-18 19:33 | XR_ITS ---
The [address] [address] Patient Name: KEN MOLINA MRN: [id number] date: 1990 Sex: F Assigned Patient Location: ER Current Patient Location: ER Accession/Order Number: [id number] Exam Date: 07/18/2024 19:58 Report Date: 07/18/2024 20:01 At the request of: PORSHA VALENTIN Procedure: XR chest 1V XR chest 1V 07/18/2024 7:57 PM SIGNS AND SYMPTOMS: cough, fever PROTOCOL: Frontal radiograph of the chest COMPARISON: None FINDINGS: The trachea is midline. The heart and mediastinal structures are within normal limits. There is airspace opacity along the right heart border. The bony thorax is intact. XR/XR chest 1V IMPRESSION: There is airspace opacity along the right heart border. This is consistent with pneumonia. Impression dictated by: Alli Narayanan M.D.07/18/2024 8:01 PM Dictation Location: [place] [address] Electronically authenticated by: [id number] Y Date: 07/18/2024 20:01
--- NOTE | 2024-07-18 19:34 | ED.URI1 ---
HPI - URI/Sore Throat General Chief Complaint: Upper Respiratory Infection Stated Complaint: FEVER Time Seen by Provider: 07/18/24 19:22 Source: patient Limitations: no limitations History of Present Illness HPI Narrative: Patient is a 33-year-old female who presents to the emergency department for a 1 day history of fevers. She reports ear pain, nonproductive coughing, body aches. She has no concern for . No sick contacts in the home. No vomiting or diarrhea. She last used Tylenol 4 hours prior to arrival. She is afebrile on arrival to the ER. Related Data Previous Rx's ?Medication ?Instructions ?Recorded ondansetron 4 mg disintegrating 4 mg PO Q4H PRN nausea and 06/11/23 tablet vomiting 3 days #6 tabs gbyokuscfckousm-qfnsavthsqtexfe-BW 10 ml PO Q6H PRN cold symptoms 07/18/24 2 mg-30 mg-10 mg/5 mL oral syrup #200 mL (Bromfed DM) cefdinir 300 mg capsule 300 mg PO BID 10 days #20 caps 07/18/24 ondansetron 4 mg disintegrating 4 mg PO Q6H PRN nausea and 07/18/24 tablet vomiting #12 tabs Allergies Allergy/AdvReac Type Severity Reaction Status Date / Time No Known Drug Allergies Allergy Verified 07/18/24 19:04 Review of Systems ROS Constitutional Reports: fever and chills Ears, nose, mouth, and throat Reports: throat pain and nasal congestion Cardiovascular Denies: chest pain Respiratory Reports: cough; Denies: shortness of breath Gastrointestinal Denies: nausea, vomiting or diarrhea Musculoskeletal Denies: back pain Integumentary/Breast Denies: rash Neurological Denies: numbness in extremities or weakness in extremities Hematologic/Lymphatic Denies: easy bruising or easy bleeding PFSH PFSH Social History Smoking status: Never smoker Little interest or pleasure in doing things: not at all Feeling down, depressed, or hopeless: not at all Exam Narrative Exam Narrative: Gen.: Awake, alert, in no distress Head: Normocephalic, atraumatic ENT: Moist mucous membranes, bilateral TMs are clear, no pharyngeal erythema Respiratory: No respiratory distress, lungs clear bilaterally Cardio: Regular rate and rhythm Extremities: Moves extremities equally Psych: Normal mood and affect Neuro: No focal neuro deficit Skin: Warm, dry, intact Constitutional Vital Signs, click to edit/add: Last Vital Signs Temp 98.8 F 07/18/24 19:01 Pulse 64 07/18/24 19:01 Resp 18 07/18/24 19:01 BP 97/62 07/18/24 19:01 Pulse Ox 98 07/18/24 19:01 Course Vital Signs Vital signs: Vital Signs Temperature 98.8 F 07/18/24 19:01 Pulse Rate 64 07/18/24 19:01 Respiratory Rate 18 07/18/24 19:01 Blood Pressure 97/62 07/18/24 19:01 Pulse Oximetry 98 07/18/24 19:01 Temperature 98.8 F 07/18/24 19:01 Pulse Rate 64 07/18/24 19:01 Respiratory Rate 18 07/18/24 19:01 Blood Pressure 97/62 07/18/24 19:01 Pulse Oximetry 98 07/18/24 19:01 MDM - URI/Sore Throat MDM Narrative Medical decision making narrative: COVID, flu, strep testing is negative. Chest x-ray reviewed by the radiologist showing a suggestion of airspace opacity consistent with pneumonia. Patient is hemodynamically stable with normal CBC and BMP. She will be treated with cefdinir, Bromfed-DM and Zofran for home. Follow-up with PCP and return to the ER if symptoms change or worsen SUPERVISED APC VISIT, PHYSICIAN ATTESTATION: Based on the medical record the care appears appropriate. ? Medical Records Attestation: I reviewed the patient's medical records. Lab Data Attestation: I reviewed the patient's lab results. Labs: Lab Results 07/18/24 07/18/24 07/18/24 Range/Units 19:03 19:40 19:48 WBC 6.0 (4.0-11.0) 10^3/uL RBC 4.13 L (4.20-5.40) 10^6/uL Hgb 12.9 (12.0-16.0) g/dL Hct 38.9 (36.0-48.0) % MCV 94.2 (81.0-99.0) fL MCH 31.2 (26.7-34.0) pg MCHC 33.2 (29.9-35.2) g/dL RDW 12.3 (11.0-15.0) % Plt Count 238 (150-450) 10^3/uL MPV 10.9 (9.5-13.5) fL Neut % (Auto) 83.2 H (43.0-75.0) % Lymph % (Auto) 5.5 L (20.5-60.0) % Power % (Auto) 10.6 (1.7-12.0) % Eos % (Auto) 0.2 L (0.9-7.0) % Baso % (Auto) 0.3 (0.2-2.0) % Neut # (Auto) 5.0 (1.4-6.5) 10^3/uL Lymph # (Auto) 0.3 L (1.2-3.8) 10^3/uL Power # (Auto) 0.6 (0.3-0.8) 10^3/uL Eos # (Auto) 0.0 (0.0-0.7) 10^3/uL Baso # (Auto) 0.0 (0.0-0.1) 10^3/uL Abs Immat Gran (auto) 0.01 (0.00-0.03) 10^3/uL Imm/Tot Granulo (auto) 0.2 (0.0-0.5) % Sodium 137 (136-145) mmol/L Potassium 4.9 (3.5-5.1) mmol/L Chloride 103 (98-107) mmol/L Carbon Dioxide 28.3 (21.0-32.0) mmol/L Anion Gap 10.6 BUN 7.0 (7.0-18.0) mg/dL Creatinine 0.92 (0.55-1.02) mg/dL Est GFR ( Amer) >60 (>=60 mL/min/1.73m^2) Est GFR (Non-Af Amer) >60 (>=60 mL/min/1.73m^2) BUN/Creatinine Ratio 7.6 Glucose 111 H (74-106) mg/dL Calcium 9.0 (8.5-10.1) mg/dL Influenza Type A Ag Negative Influenza Type B Ag Negative RSV Antigen Not detected (NOT DETECTE) SARS-CoV-2 Ag (CV2AG) Negative (NEGATIVE) Streptococcus Screen Negative Imaging Data Chest x-ray: Attestation: I have reviewed the pertinent imaging results. Radiologist's impression: ITS Impressions Chest X-Ray 07/18/24 19:33 IMPRESSION: There is airspace opacity along the right heart border. This is consistent with pneumonia. Impression dictated by: Alli Narayanan M.D.07/18/2024 8:01 PM Dictation Location: [place] [address] Electronically authenticated by: [id number] Y Date: 07/18/2024 20:01 Discharge Plan Discharge Chief Complaint: Upper Respiratory Infection Clinical Impression: Upper respiratory infection, Fever, Pneumonia Patient Disposition: Home, Self-Care Time of Disposition Decision: 20:32 Condition: Good Prescriptions / Home Meds: New wkmlnhtzlgnieix-esdlspwwa-UY [Bromfed DM] 2-30-10 mg/5 mL syrup 10 ml PO Q6H PRN (Reason: cold symptoms) Qty: 200 0RF ondansetron 4 mg tablet,disintegrating 4 mg PO Q6H PRN (Reason: nausea and vomiting) Qty: 12 0RF cefdinir 300 mg capsule 300 mg PO BID 10 Days Qty: 20 0RF No Action ondansetron 4 mg tablet,disintegrating 4 mg PO Q4H PRN (Reason: nausea and vomiting) 3 Days Qty: 6 0RF Print Language: Kuwaiti Instructions: Fever in Adults (ED), Upper Respiratory Infection (ED), Pneumonia (ED) Referrals: Mina Morataya DO [Primary Care Provider] - 1 week Discharge Date/Time: 07/18/24 20:41
[2024-07-18 19:49] LABS: Basophils Percent Auto 0.3 % (0.2-2.0); Eosinophils Percent Auto 0.2 % (0.9-7.0); Hematocrit 38.9 % (36.0-48.0); Hemoglobin 12.9 g/dL (12.0-16.0); Immature Granulocytes Abs Auto 0.01 10^3/uL (0.00-0.03); Immature Granulocytes Pct Auto 0.2 % (0.0-0.5); Lymphocytes Absolute Auto 0.3 10^3/uL (1.2-3.8); Lymphocytes Percent Auto 5.5 % (20.5-60.0); Mean Corpuscular HGB Conc 33.2 g/dL (29.9-35.2); Mean Corpuscular Hemoglobin 31.2 pg (26.7-34.0); Mean Corpuscular Volume 94.2 fL (81.0-99.0); Mean Platelet Volume 10.9 fL (9.5-13.5); Monocytes Absolute Auto 0.6 10^3/uL (0.3-0.8); Monocytes Percent Auto 10.6 % (1.7-12.0); Neutrophils Percent Auto 83.2 % (43.0-75.0); Platelet Count 238 10^3/uL (150-450); Red Blood Count 4.13 10^6/uL (4.20-5.40); Red Cell Distribution Width 12.3 % (11.0-15.0)
[2024-07-18 20:02] LABS: Anion Gap 10.6; BUN Creatinine Ratio 7.6; Carbon Dioxide 28.3 mmol/L (21.0-32.0); Chloride 103 mmol/L (98-107); Estimated GFR (African America >60 (>=60 mL/min/1.73m^2); Estimated GFR (Non-African Ame >60 (>=60 mL/min/1.73m^2); Glucose 111 mg/dL (74-106); Potassium 4.9 mmol/L (3.5-5.1); Sodium 137 mmol/L (136-145)
[2024-07-18 20:23] LABS: Internal Control Within Normal Limits; Strep A Antigen Screen Negative
== END 2024-07-18 20:41 | disposition home or self-care (01) ==
PROVIDERS: Physician Assistant; Emergency Provider Emergency Medicine; PCP Internal Medicine
DX: J06.9 Acute upper respiratory infection, unspecified (principal); J18.9 Pneumonia, unspecified organism; R50.9 Fever, unspecified; R05.9 Cough, unspecified; H92.03 Otalgia, bilateral
CPT/HCPCS: 36415; 71045; 80048; 85025; 87070; 87420; 87804; 87811; 87880; 99285

== ENCOUNTER 2024-11-28 09:34 | Outpatient (OUT) | payer OTHER, SELFPAY ==
--- OUTSIDE RECORDS SUMMARY | 2014-03-22 02:08 | XMS_ITS | Encounter Summary ---
Author Organization [facility] Address [address] [place] [address] Care Team Providers Care Tube Buffer Name Role Phone Unavailable Primary Care Provider Unavailabl e Encounter Details Date Type Department Care Team (Late st Contact Info) Description 03/22/2014 2:08 AM EDT Hospital Encounter MTH PRE ADMIT [address] [place] [id number] Jesus Alberto Terrazas MD [address] [place] [address] Social History Tobacco Use Types Packs/Day Years Used Date Smoking Tobacco: Never Alcohol Use Standard Drinks/Week Comments No 0 (1 standard drink = 0.6 oz pur e alcohol) Comments No Sex and Gender Information Value Date Recorded Sex Assigned at Not on file Legal Sex Female 5:24 PM EDT Gender Identity Not on file Sexual Orientation Not on file documented as of this encounter Last Filed Vital Signs Vital Sign Reading Time Taken Comments Blood Pressure 111/56 03/22/2014 2:56 PM EDT Pulse - - Temperature 37.1 C (98.8 F) 03/22/2014 2:56 PM EDT Respiratory Rate - - Oxygen Saturation 98% 03/22/2014 2:56 PM EDT Inhaled Oxygen Concentration - - Weight 69.1 kg (152 lb 6 oz) 03/22/2014 2:56 PM EDT Height 170.2 cm (5' 7 ) 03/22/2014 2:56 PM EDT Body Mass Index 23.87 03/22/2014 2:56 PM EDT documented in this encounter Plan of Treatment Not on file documented as of this encounter Procedures Procedure Name Priority Date/Time Associated Diagnosis Comments CBC WITH AUTO DIFFERENTIAL Routine 03/22/2014 3:18 PM EDT documented in this encounter Results * CBC auto differential (03/22/2014 3:18 PM EDT) [facility] Signature WBC 7.3 3.5 - 11.0 k/uL 03/22/2014 4:18 PM EDT [facility] RBC 4.03 4.0 - 5.2 m/uL 03/22/2014 4:18 PM EDT [facility] Hemoglobin 12.2 12.0 - 16.0 g/dL 03/22/2014 4:18 PM EDT [facility] Hematocrit 36.8 36 - 46 % 03/22/2014 4:18 PM EDT [facility] MCV 91.3 80 - 100 fL 03/22/2014 4:18 PM EDT [facility] MCH 30.3 26 - 34 pg 03/22/2014 4:18 PM EDT [facility] MCHC 33.2 31 - 37 g/dL 03/22/2014 4:18 PM EDT [facility] RDW 13.4 12.1 - 15.2 % 03/22/2014 4:18 PM EDT [facility] Platelets 245 140 - 450 k/uL 03/22/2014 4:18 PM EDT [facility] MPV NOT REPORTED 6.0 - 12.0 fL [facility] Differential Type NOT REPORTED [facility] Seg Neutrophils 56 36 - 66 % 4 4:18 PM EDT [facility] Lymphocytes 36 24 - 44 % 03/22/2014 4:18 PM EDT [facility] Monocytes % 5 0 - 12 % 03/22/2014 4:18 PM EDT [facility] Eosinophils % 1 0 - 8 % 03/22/2014 4:18 PM EDT [facility] Basophils % 2 0 - 2 % 03/22/2014 4:18 PM EDT [facility] Neutrophils Absolute 4.10 1.8 - 7.7 k/uL 03/22/2014 4:18 PM EDT [facility] Lymphocytes Absolute 2.60 1.0 - 4.8 k/uL 03/22/2014 4:18 PM EDT [facility] Monocytes Absolute 0.40 0.0 - 1.0 k/uL 03/22/2014 4:18 PM EDT [facility] Eosinophils Absolute 0.10 0.0 - 0.4 k/uL 03/22/2014 4:18 PM EDT [facility] Basophils Absolute 0.10 0.0 - 0.2 k/uL 03/22/2014 4:18 PM EDT [facility] Comment: Performed at [address] [place] [address] ([phone] WBC Morphology NOT REPORTED [facility] RBC Morphology NOT REPORTED [facility] Platelet Estimate NOT REPORTED [facility] BLOOD SPECIMEN / Unknown 03/22/2014 3:18 PM EDT 03/22/2014 3:19 PM EDT us Jesus Alberto Terrazas MD HEMATOLOGY ORDERABLES Fin al Result [address] [address], [facility] [phone] [facility] documented in this encounter Visit Diagnoses Not on filedocumented in this encounter
--- OUTSIDE RECORDS SUMMARY | 2024-11-27 11:39 | XMS_ITS | Continuity of Care Document ---
Author Organization [facility] Address [address] [place] [address] Phone Care Team Providers Care Reducing System Operator Name Role Phone Loraine Kaufman MD Primary Care Provider Loraine Kaufman MD Attending Provider Care Teams Patient Care Team Team Status: Active Member Role Status Dates Loraine Kaufman MD Primary Care Provider Active Patient Care Team Team Status: Inactive Member Role Status Dates Loraine Kaufman MD Primary Care Provider Active Start: November 27, 2024 End: November 27, 2024 Loraine Kaufman MD Attending Provider Active St art: November 27, 2024 End: November 27, 2024 Chief Complaint and Reason for Visit Chief Complaint Admit Date Wellness/discuss labs wanted November 27, 025 2:40pm Reason for Visit Admit Date Fatigue November 27, 2024 2:40p m Hair loss November 27, 2024 2:40p m Wellness examination November 27, 2024 2:40 pm Allergies, Adverse Reactions, Alerts Allergen Type Severity Reaction Last Updated Verified Status No Known Allergies Allergy Unknown November 27, 2024 2:51pm Yes Active Social History Smoking Status Status Start Date End Date Date of Observa tion Never smoked tobacco (finding) November 27, 2024 2:52pm Observation Status Observation Response Date of Response Legal Sex Female (finding) Sex Assigned At Female 1990 Status N November 27, 2024 Family History Relationship Condition Age at Onset Recorded Date/T chirag father Hypertension Unknown father Hypertension Unknown Problems Active Problems Medical Problem Onset Date Status Fatigue Unknown Active Wellness examination Unknown Active Hair loss Unknown Active Inactive/Resolved Problems Medical Problem Onset Date Status (normal spontaneous vaginal delivery) Unkno wn Resolved Medications Medication Status Dose Units Route Directions Qty Days St art Date Stop Date End Date Instructions Adherence [id number] ous Fumarate-Fa () 28-800 mg-mcg Tablet Discont inued 1 CAP PO Daily [facility] 2018 1:00am [facility] 2021 10:13 am Ferrous Sulfate (Iron) 325 mg (65 mg iron) Tablet Discont inued 325 MG PO Daily [facility] 2018 1:00am [facility] 2021 10:13 am Cephalexin 500 mg capsule Discont inued 500 MG PO Q6H 40 10 [facility] 2018 1:00am Febru trey 2019 6:06p m Docusate Sodium (Dok) 100 mg Capsule Discont inued 100 MG PO Daily at bedtime 30 2019 1:00am [facility] 2021 10:13 am Ibuprofen 100 mg/5 mL suspension Discont inued 600 MG PO Q6H as needed for pain 120 2019 1:00am [facility] 2021 10:13 am [place] (No Known Home Meds) Active November 21, 2024 12:00a m Vital Signs Vital Reading Result Reference Range Collection Date/Time Height 67 [in_i] November 27, 2024 2:50pm Weight 64.41 kg November 27, 2024 2:50pm Heart Rate 56 /min 60-100 November 27, 2024 2:50pm BP Systolic 109 mm[Hg] 100-140 November 27, 2024 2:50pm BP Diastolic 73 mm[Hg] 60-100 November 27, 2024 2:50pm BMI (Body Mass Index) 22.2 kg/m2 November 272024 2:50pm Advance Directives Advance Directive Response Recorded Date/ Time Advance Directives No April 24, 2019 11:29am Insurance Providers Guarantor Sarah Palmland Address [address] [place] [address] Contact Info. Home Phone: Payer Policy Id Subscriber's Name Subscriber Id Effectiv e Date Expiration Date [facility] [id number] Yudy Childs [id number] Encounters Encounter Location(s) Arrival/Admit Date Discharge/Depart Date Provider(s) Departed Physician/Prov ider Office Visit -[facility] November 27, 2024 2:40pm November 27, 2024 3:38pm Loraine Kaufman MD Recent Diagnosis Onset Date Admit Date Fatigue Unknown November 27, 2024 2 :40pm Hair loss Unknown November 27, 2024 2 :40pm Wellness examination Unknown November 27, 2 025 2:40pm Assessments Diagnosis Onset Date Resolution Status Admit Date Fatigue acute November 27, 2024 2:40pm Hair loss acute November 27, 2024 2:40pm Wellness examination acute November 27, 2024 2:40pm Plan of Treatment Future Tests Future scheduled test information is unavailable Pending Tests Test Name Ordered Date Scheduled Date Comprehensive Metabolic Panel November 27, 2024 3:1 1pm 1 Days Future Visits Future appointment information is unavailable Referrals to Other Providers Referral information is unavailable Future Procedures Procedure Name Ordered Date Scheduled Date Complete Blood Count Auto Diff November 27, 2024 3: 11pm 1 Days Cortisol November 27, 2024 3:11pm 1 Days Free T4 (Free Thyroxine) November 27, 2024 3:11pm 1 Days Thyroid Stim Hormone w/Rflx November 27, 2024 3:11p m 1 Days Future Medications Future medication information is unavailable Patient Instructions Patient instructions are unavailable
--- OUTSIDE RECORDS SUMMARY | 2024-11-28 09:37 | XMS_ITS | Encounter Summary ---
Author Organization [facility] Address [address] [place] [address] Care Team Providers Care Expander Name Role Phone Loraine Kaufman MD Primary Care Provider [phone] Encounter Details Date Type Department Care Team (Late st Contact Info) Description 12/16/2022 Abstract [facility] [address] [facility] [address] [place] [phone] Mini Renner, [address] [facility] [address] [place] [address] Social History Tobacco Use Types Packs/Day Years Used Date Smoking Tobacco: Never Tobacco Cessation:Counseling Given: Not Answered Alcohol Use Standard Drinks/Week Comments Never 0 (1 standard drink = 0.6 oz pure alcohol) Caffeine intake: 1-2 cups per day pop Education Answer Date Recorded What is the highest level of school you have completed or the highest degree you have received? Some college, no degree 12/16/2022 Comments Unknown Sex and Gender Information Value Date Recorded Sex Assigned at Not on file Legal Sex Female 8:11 PM EDT Gender Identity Not on file Sexual Orientation Not on file documented as of this encounter Plan of Treatment Not on file documented as of this encounter Visit Diagnoses Not on filedocumented in this encounter Care Teams Expander Relationship Specialty Start Date End Date Loraine Kaufman MD PCP - General Family Medicine 10/27/22 documented as of this encounter
--- OUTSIDE RECORDS SUMMARY | 2024-11-28 09:37 | XMS_ITS | Clinical Summary ---
Author Organization [facility] Address [id number] [address] [place] [address] Care Team Providers Care Railroad Car Repairman Name Role Phone Loraine Kaufman MD Primary Care Provider [phone] Allergies No known active allergies Medications 25/iron fum/folic/dha (-1 ORAL) Take by mouth. Active Active Problems Problem Noted Date Diagnosed Date Overview (11/14/2018): EDC spring Comments Yes Family History Medical History Relation Name Comments Hypertension Father No Known Problems Mother Esophagitis Sister No Known Problems Son Relation Name Status Comments Father Alive Mother Alive Sister Alive Son Alive Social History Tobacco Use Types Packs/Day Years Used Date Smoking Tobacco: Never Smokeless Tobacco: Never Tobacco Cessation:Counseling Given: No Alcohol Use Standard Drinks/Week Comments Not Currently 0 (1 standard drink = 0.6 oz pur e alcohol) PHQ-2 Answer Date Recorded Total Score 0 11/14/2018 Childcare Answer Date Recorded Childcare Unknown 11/10/2018 Employment Answer Date Recorded Employment Unknown 11/10/2018 Purpose - Life Answer Date Recorded Purpose and direction in life Unknown Comments Yes Sex and Gender Information Value Date Recorded Sex Assigned at Not on file Legal Sex Female 11:26 AM EDT Gender Identity Not on file Sexual Orientation Not on file Occupation Industry Job Start Date Job End Date [employer] Not on file Not on file Not on file Last Filed Vital Signs Vital Sign Reading Time Taken Comments Blood Pressure 112/70 11/14/2018 9:24 AM EDT Pulse 74 11/14/2018 9:24 AM EDT Temperature 36.6 C (97.8 F) 11/14/2018 9:24 AM EDT Respiratory Rate 16 11/14/2018 9:24 AM EDT Oxygen Saturation 98% 11/14/2018 9:24 AM EDT Inhaled Oxygen Concentration - - Weight 71.2 kg (157 lb) 11/14/2018 9:24 AM EDT Height 170.2 cm (5' 7 ) 11/14/2018 9:24 AM EDT Body Mass Index 24.59 11/14/2018 9:24 AM EDT Plan of Treatment Health Maintenance Due Date Last Done Comments Depression Screening 2002 Tobacco Screening 2002 Adult BMI Screening 2008 DTaP,Tdap and Td Vaccines (1 - Tdap) 2009 Pap Smear 08/24/2011 Influenza Vaccine 01/22/2025 Medical Devices Not on file Care Teams Railroad Car Repairman Relationship Specialty Start Date End Date Loraine Kaufman MD [address] [place] [address] PCP - General Family Medicine 11/14/18
--- OUTSIDE RECORDS SUMMARY | 2024-11-28 09:37 | XMS_ITS | Clinical Summary ---
Author Organization [facility] Address [address] [place] [address] Care Team Providers Care Touch Up Painter Name Role Phone Loraine Kaufman MD Primary Care Provider [phone] Allergies No known active allergies Medications No known medications Active Problems Problem Noted Date Diagnosed Date Dysmenorrhea 10/20/2022 Menorrhagia 10/20/2022 Subacute vaginitis 10/20/2022 Family History Medical History Relation Name Comments Hypertension Father Pancreatic cancer Maternal Grandfather Stroke Maternal Grandmother Kidney nephrosis Mother Heart disease Paternal Grandfather Breast cancer Paternal Grandmother Diabetes Paternal Grandmother Thyroid disease Paternal Grandmother Relation Name Status Comments Daughter 1 Father Alive Maternal Grandfather Maternal Grandmother Mother Alive Paternal Grandfather Paternal Grandmother Sister 1 Son 1 Social History Tobacco Use Types Packs/Day Years [...] on file Sexual Orientation Not on file Last Filed Vital Signs Vital Sign Reading Time Taken Comments Blood Pressure 118/72 08/31/2023 11:20 AM EDT Pulse - - Temperature - - Respiratory Rate - - Oxygen Saturation - - Inhaled Oxygen Concentration - - Weight 68.9 kg (152 lb) 08/31/2023 11:20 AM EDT Height 170.2 cm (5' 7 ) 08/31/2023 11:20 AM EDT Body Mass Index 23.81 08/31/2023 11:20 AM EDT Plan of Treatment Not on file Insurance Care Teams Touch Up Painter Relationship Specialty Start Date End Date Loraine Kaufman MD PCP - General Family Medicine 10/27/22
--- OUTSIDE RECORDS SUMMARY | 2024-11-28 09:37 | XMS_ITS | Encounter Summary ---
Author Organization [facility] Address [address] [place] [address] Care Team Providers Care Cat Cracker Operator Name Role Phone Loraine Kaufman MD Primary Care Provider [phone] Encounter Details Date Type Department Care Team (Late st Contact Info) Description 12/17/2022 Abstract [facility] [address] [facility] [address] [place] [phone] Mini Renner, DO [address] [facility] [address] [place] [address] Social History Tobacco Use Types Packs/Day Years Used Date Smoking Tobacco: Never Alcohol Use Standard Drinks/Week Comments Never 0 [...] on filedocumented in this encounter Care Teams Cat Cracker Operator Relationship Specialty Start Date End Date Loraine Kaufman MD PCP - General Family Medicine 10/27/22 documented as of this encounter
--- OUTSIDE RECORDS SUMMARY | 2024-11-28 09:37 | XMS_ITS | Clinical Summary ---
Author Organization [facility] Address [address] [place] [address] Care Team Providers Care Lead Manufacturing Engineering Tech Name Role Phone Unavailable Primary Care Provider Unavailabl e Allergies No known active allergies Medications norgestimate-eth inyl estradiol (ORTHO-CYCLEN, 28,) 0.25-35 MG-MCG per tablet Take 1 tablet by mouth daily. Active Hydrocodone-Acet aminophen (LORTAB) 5-217 MG/10ML solution Take 15 mLs by mouth every 4 hours as needed for Pain. 240 mL 0 03/29/2014 Active Active Problems Problem Noted Date Diagnosed Date Chronic tonsillitis 03/29/2014 Social History Tobacco Use Types Packs/Day Years [...] Sign Reading Time Taken Comments Blood Pressure 114/62 03/29/2014 1:00 PM EST Pulse 55 03/29/2014 1:00 PM EST Temperature 36.8 C (98.2 F) 03/29/2014 1:00 PM EST Respiratory Rate 16 03/29/2014 1:00 PM EST Oxygen Saturation 97% 03/29/2014 1:00 PM EST Inhaled Oxygen Concentration - - Weight 68.9 kg (152 lb) 03/29/2014 8:28 AM EST Height 170.2 cm (5' 7 ) 03/29/2014 8:28 AM EST Body Mass Index 23.81 03/29/2014 8:28 AM EST Plan of Treatment Not on file
--- OUTSIDE RECORDS SUMMARY | 2024-11-28 09:37 | XMS_ITS | Encounter Summary ---
Author Organization [facility] Address [address] [place] [address] Care Team Providers Care Shopper'S Aide Name Role Phone Loraine Kaufman MD Primary Care Provider Encounter Details Date Type Department Care Team (Late st Contact Info) Description 12/18/2022 Abstract [facility] [address] [facility] [address] [place] [phone] Mini Renner, DO [address] [facility] [address] [place] [address] Social History Tobacco Use Types Packs/Day Years [...] on filedocumented in this encounter Care Teams Shopper'S Aide Relationship Specialty Start Date End Date Loraine Kaufman MD PCP - General Family Medicine 10/27/22 documented as of this encounter
[2024-11-28 10:12] LABS: Hematocrit 39.1 % (36.0-48.0); Hemoglobin 12.9 g/dL (12.0-16.0); Immature Granulocytes Abs Auto 0.01 10^3/uL (0.00-0.03); Immature Granulocytes Pct Auto 0.1 % (0.0-0.5); Lymphocytes Absolute Auto 2.1 10^3/uL (1.2-3.8); Mean Corpuscular HGB Conc 33.0 g/dL (29.9-35.2); Mean Corpuscular Hemoglobin 31.5 pg (26.7-34.0); Mean Corpuscular Volume 95.4 fL (81.0-99.0); Platelet Count 266 10^3/uL (150-450); Red Blood Count 4.10 10^6/uL (4.20-5.40); White Blood Count 6.7 10^3/uL (4.0-11.0)
[2024-11-28 11:16] LABS: Alanine Aminotransferase 16 U/L (14-59); Albumin Globulin Ratio 1.1; Albumin Level 3.9 g/dL (3.4-5.0); Alkaline Phosphatase 42 U/L (46-116); Anion Gap 12.4; Aspartate Amino Transferase 13 U/L (15-37); Blood Urea Nitrogen 12.0 mg/dL (7.0-18.0); Calcium 9.6 mg/dL (8.5-10.1); Carbon Dioxide 30.2 mmol/L (21.0-32.0); Chloride 104 mmol/L (98-107); Estimated GFR (African America >60 (>=60 mL/min/1.73m^2); Estimated GFR (Non-African Ame >60 (>=60 mL/min/1.73m^2); Globulin 3.4 g/dL; Glucose 103 mg/dL (74-106); Potassium 4.6 mmol/L (3.5-5.1); Sodium 142 mmol/L (136-145); Thyroid Stimulating Hormone 1.681 uIU/mL (0.358-3.740); Total Protein 7.3 g/dL (6.4-8.2)
== END 2024-11-28 09:35 | disposition home or self-care (01) ==
LOC: LAB 09:36
PROVIDERS: PCP Family Medicine; Visit Provider Family Medicine
DX: Z00.00 Encounter for general adult medical examination without abnormal findings (principal); R53.83 Other fatigue; L65.9 Nonscarring hair loss, unspecified
CPT/HCPCS: 36415; 80053; 82533; 84439; 84443; 85025